=== PATIENT | male | born 1930 | race Caucasian/White ===

== ENCOUNTER 2018-07-23 01:48 | Emergency (ER) | payer OTHER ==
--- NOTE | 2018-07-23 02:52 | PDOC ---
History of Present Illness - General Chief Complaint: Nausea/Vomiting Stated Complaint: NAUSEA.VOMITING Time Seen by Provider: 07/23/18 02:51 History Source: Patient Exam Limitations: No Limitations - History of Present Illness Initial Comments: 87 yo M h/o CAD w/ 2007, DM, chronic venous stasis p/w 1 episode of vomiting. Pt stated that he vomited food content when he tried to spit out a dry piece of chicken during dinner. It was non-bloody non-bilious. His and him became concerned and called the ambulance. No fever, chills, chest pain, shortness of breath, dizziness. Past History - Past Medical History Allergies/Adverse Reactions: Allergies Allergy/AdvReac Type Severity Reaction Status Date / Time No Known Allergies Allergy Verified 07/23/18 02:46 - Suicide/Smoking/Psychosocial Hx Smoking History: Never smoked Have you smoked in the past 12 months: No Information on smoking cessation initiated: No Hx Alcohol Use: Yes Drug/Substance Use Hx: No Review of Systems - Review of Systems Able to Perform ROS?: Yes Is the patient limited Irish proficient: No Constitutional: No: Chills, Fever Respiratory: No: Cough, Orthopnea, Shortness of Breath Cardiac (ROS): No: Chest Pain ABD/GI: Yes: Vomiting. No: Abdominal Distended, Abd. Pain w/ defecation, Blood Streaked Bowels, Constipated, Diarrhea, Difficulty Swallowing, Nausea, Poor Appetite, Poor Fluid Intake, Rectal Bleeding, Indigestion, Abdominal cramping : No: Burning, Dysuria *Physical Exam - Vital Signs Last Vital Signs Temp Pulse Resp BP Pulse Ox 97.8 F 68 19 132/54 L 100 07/23/18 01:48 07/23/18 01:48 07/23/18 01:48 07/23/18 01:48 07/23/18 01:48 - Physical Exam General Appearance: No: Apparent Distress Respiratory/Chest: positive: Lungs Clear, Normal Breath Sounds Cardiovascular: positive: Regular Rhythm, Regular Rate, S1, S2, Murmur Gastrointestinal/Abdominal: positive: Normal Bowel Sounds. negative: Tender, Guarding, Rebound Extremity: positive: Swelling Neurologic: positive: test borer II-XII NML intact *DC/Admit/Observation/Transfer Diagnosis at time of Disposition: Vomiting alone Qualifiers: Vomiting type: unspecified Vomiting Intractability: unspecified Qualified Code( s): R11.11 - Vomiting without nausea - Discharge Dispostion Disposition: HOME Condition at time of disposition: Stable Decision to Admit order: No - Referrals Referrals: Gelacio Salcido [Primary Care Provider] - Bradley Urbina MD [Staff Physician] - - Patient Instructions Printed Discharge Instructions: DI for Vomiting -- Adult Additional Instructions: You were evaluated for vomiting in ER. It's likely not due to any medical problem and because you tried to burp the stucked food piece out. You are now stable to be discharged home. Please follow up with a gastrointestinologist as outpatient. - Post Discharge Activity
[2018-07-23 02:53] VITALS: BP 132/54; PULSE 68; TEMP 97.8; BMI 38.0
--- NOTE | 2018-07-23 03:29 | PDOC ---
Attending Attestation - Resident Resident Name: Chuck Dennis - ED Attending Attestation I have performed the following: I have examined & evaluated the patient, The case was reviewed & discussed with the resident, I agree w/resident's findings & plan - HPI HPI: 07/23/18 03:41 87-year-old male with a choking sensation while eating, resolved after an episode of vomiting now asymptomatic requesting to go home. Patient has had similar episodes in the past but never this severe. - Physicial Exam PE: 07/23/18 03:41 Agree with resident's exam - Medical Decision Making 07/23/18 03:42 87-year-old male with a choking sensation resolved with vomiting now asymptomatic Patient has refused imaging and further evaluation stating he feels better and would like to leave on reevaluation at 3:40 AM His son is at the bedside to assist in discharge [facility] and has been given recommendations for gastroenterology follow-up
[2018-07-23] MEDS ORDERED: ONDANSETRON 4 MG/2 ML VIAL IVPUSH ONE (03:56)
[2018-07-23] MEDS ORDERED: SODIUM CHLORIDE 1,000 ML IV STA (03:57)
[2018-07-23] MEDS ORDERED: KETOROLAC TROMETHAMINE 30 MG/1 ML VIAL IVPUSH ONE (03:57)
== END 2018-07-23 04:56 | disposition home or self-care (01) ==
LOC: JER 01:48
DX: R11.11 Vomiting without nausea (principal); I25.10 Atherosclerotic heart disease of native coronary artery without angina pectoris; Z95.5 Presence of coronary angioplasty implant and graft; E11.9 Type 2 diabetes mellitus without complications; I87.8 Other specified disorders of veins
CPT/HCPCS: 99282-25